=== PATIENT | female | born 1955 | race Caucasian/White ===

== ENCOUNTER 2017-11-27 09:10 | Emergency (ER) | payer MEDICARE ==
[2017-11-27] MEDS ORDERED: methylPREDNISolone Sod Succ/PF 125 MG/2 ML VIAL ONE (11:53)
[2017-11-27] MEDS ORDERED: Water For Inject, Bacteriostat 30 ML ONE (12:12)
== END 2017-11-27 12:11 | disposition home or self-care (01) ==
LOC: ERS 09:10
DX: T78.3XXA Angioneurotic edema, initial encounter (principal); D86.9 Sarcoidosis, unspecified; I10 Essential (primary) hypertension; E11.9 Type 2 diabetes mellitus without complications
CPT/HCPCS: 96374; J2930

== ENCOUNTER 2018-04-27 01:49 | Inpatient (IN) | payer MEDICARE ==
[2018-04-27] MEDS ORDERED: Acetaminophen 500 MG TAB ONE (03:51)
[2018-04-27] MEDS ORDERED: cefTRIAXone\\ROCEPHIN 1 GM in Sodium Chloride 0.9% 100 ML IVPB SCH (04:34)
[2018-04-27] MEDS ORDERED: HumaLOG 300 UNITS/3 ML VIAL SC PRN (04:34)
[2018-04-27] MEDS ORDERED: Senokot 8.6 MG TAB PO PRN (04:34)
[2018-04-27] MEDS ORDERED: Melatonin 3 MG TAB PO PRN ×2 (04:34→14:50)
[2018-04-27] MEDS ORDERED: Dextrose 50% Abboject 50 ML SYRINGE SLOW IVP PRN (04:34)
[2018-04-27] MEDS ORDERED: Guaifenesin DM 100-10/5 ML UDCUP PO PRN (04:34)
[2018-04-27] MEDS ORDERED: Acetaminophen 325 MG TAB PO PRN (04:34)
[2018-04-27] MEDS ORDERED: Dextrose 5% in Water 1,000 ML IV PRN (04:34)
[2018-04-27] MEDS: Azithromycin 500 MG in Sodium Chloride 0.9% 250 ML 250 ML IVPB SCH (06:37)
[2018-04-27 07:24] VITALS: BMI 34.9
[2018-04-27] MEDS ORDERED: Oxybutynin 5 MG TAB PO SCH (09:00)
[2018-04-27] MEDS ORDERED: Lidocaine 4% PF 5 ML AMP NEB SCH (09:15)
[2018-04-27] MEDS: Sodium Chloride 0.9% 1,000 ML IV SCH (09:44)
[2018-04-27] MEDS: Cefepime 2 GM in Sodium Chloride 0.9% 100 ML IVPB SCH ×2 (09:46→21:59)
[2018-04-27] MEDS: metFORMIN 500 MG TAB PO SCH ×2 (09:48→17:16)
[2018-04-27] MEDS: Gabapentin 300 MG CAP PO SCH ×2 (09:49→21:58)
[2018-04-27] MEDS: Benzonatate 100 MG CAP PO SCH ×3 (09:49→21:59)
[2018-04-27] MEDS: guaiFENesin ER 600 MG TAB PO SCH ×2 (09:49→21:58)
[2018-04-27] MEDS: Famotidine 20 MG TAB PO SCH ×2 (09:49→21:59)
--- NOTE | 2018-04-27 10:20 | CON ---
DATE OF CONSULTATION: 04/27/2018 This is a 62-year-old female who was seen in the office for the first time on 04/19/2018. She presented with hemoptysis and abnormal chest x-ray. She was to be followed up in the office with a repeat chest x-ray and subsequent CAT scan, but presented with recurrent hemoptysis. She is a [facility] smoker, though she quit smoking many years ago, 18 years ago. She had a pack a day smoking for 1 5 years at least. She has been sick since 04/07/2018. PAST MEDICAL HISTORY: Pertinent for previous history of TB diagnosed in 2005. She took several diff erent medications. History of sarcoidosis diagnosis made following some kind of a lung biopsy in [place], [place]. We are still awaiting information from [place]. History of neuropathy, history o f TIA, history of gastritis, history of diabetes, chronic pain. PAST SURGICAL HISTORY: Lung biopsy in 2005, right eye surgery, breast tumor benign, back surgery, to nsils, lap band in 2002, hysterectomy 1990. MEDICATIONS FROM HOME: Metformin 1000 twice a day, atorvastatin 20, gabapentin 300 twice a day, Core g 6.2 twice a day, oxybutynin 5 twice a day, Zoloft 50, trazodone 50. ALLERGIES: LISINOPRIL and MORPHINE. SOCIAL/FAMILY HISTORY: As noted a former smoker. No alcohol abuse. REVIEW OF SYSTEMS: Otherwise 10 point negative. PHYSICAL EXAMINATION: VITAL SIGNS: Blood pressure 126/64, sats 90% on room air, pulse 95, temperature 98. GENERAL: She is awake, alert, responsive, in no distress. CHEST: Chest revealed decreased breath sounds, rhonchi and crackles, left greater than right. CARDIAC: Normal S1, S2, no gallops. ABDOMEN: Soft. No masses. LABORATORY: White count 10,000, H&H 10 and 31, platelet count is normal. INR is normal. Electrolyt es are normal. IMPRESSION: 1. X-ray shows the previously described left lower lung mass and infiltrate. CAT scan shows 5.5 cm mass in the superior segment of the left lower lobe. 2. Hemoptysis. PLAN: Diagnostic bronchoscopy will be performed because regarding hemoptysis, former smoker. In the meantime, I agree with neb treatments, empiric antibiotics, supportive care. I will follow. This is a consultation note, 70 minutes, 50% spent in direct patient care.
[2018-04-27] MEDS ORDERED: methylPREDNISolone Sod Succ/PF 125 MG/2 ML VIAL IVP SCH (12:00)
--- NOTE | 2018-04-27 13:06 | HP ---
REASON FOR ADMISSION: Left lung pneumonia, failed outpatient antibiotic treatment, hemoptysis. HISTORY OF PRESENT ILLNESS: The patient gives history of being diagnosed with pneumonia last Thursday. She was placed on Levaquin. She took it for 3 days and was not feeling good. She went back to see her primary care physician in [place], Dr. Summer Groves. Medrol Dosepak was added and she completed the full course and felt better. Yesterday evening, the patient started to have coughing spells and had hemoptysis multiple times. She had a followup appointment with Dr. Tompkins on the , which the primary care physician has set out for her. She has known history of sarcoidosis diagnosed more than 10 years ago. No complaints of fever at present. She has no complaints of chest pain, palpitation, PND, or orthopnea. She takes aspirin and no other blood thinners. The patient does not use oxygen. From last week or so, she has been using 3- 4 times her albuterol nebulizer, but otherwise does not use it on a regular basis. PAST MEDICAL AND SURGICAL HISTORY: Diabetes mellitus type 2, peripheral neuropathy, dyslipidemia, hypertension, insomnia, has had a lung biopsy done in [place], [place], which was apparently negative for sarcoid and she was clinically diagnosed with sarcoidosis per patient. Lap band, lumbar fusion, tonsillectomy, hysterectomy, hernia repair. CURRENT MEDICATIONS: Metformin 1000 mg twice daily, gabapentin 300 mg twice daily, oxybutynin 5 mg daily, atorvastatin 20 mg daily, aspirin 81 mg daily, sertraline 50 mg daily, trazodone 50 mg p.o. at bedtime p.r.n., melatonin 10 mg p.o. at bedtime, Biotin 1 tab daily, albuterol rescue inhaler p.r.n., albuterol nebulizer q.6 hourly p.r.n. ALLERGIES: Allergic to LISINOPRIL and MORPHINE. PERSONAL HISTORY: Quit smoking 18 years ago, prior to which smoked one pack a day for nearly 15 years. Does not abuse alcohol or drugs. She lives alone. FAMILY HISTORY: Mother of [place] at the age of 67 years. She was also alcoholic. She does not know much about her father. The patient has 3 children. CODE STATUS: FULL. Power of senior attorney is her daughter, Ms. Anahi Antonio. REVIEW OF SYSTEMS: The following complete review of systems was negative, unless otherwise mentioned in the HPI or below: Constitutional: Weight loss or gain, ability to conduct usual activities. Skin: Rash, itching. Eyes: Double vision, pain. ENT/Mouth: Nose bleeding, neck stiffness, pain, tenderness. Cardiovascular: Palpitations, dyspnea on exertion, orthopnea. Respiratory: Shortness of breath, wheezing, cough, hemoptysis, fever or night sweats. Gastrointestinal: Poor appetite, abdominal pain, heartburn, nausea, vomiting, constipation, or diarrhea. Genitourinary: Urgency, frequency, dysuria, nocturia. Musculoskeletal: Pain, swelling. Neurologic/Psychiatric: Anxiety, depression. Allergy/Immunologic: Skin rash, bleeding tendency. PHYSICAL EXAMINATION: GENERAL: The patient is a 62-year-old female who is currently not in any acute distress. VITAL SIGNS: Blood pressure 160/84, pulse 70 per minute, respiratory rate 18 per minute, temperature 98 degrees Fahrenheit, saturating 96% on room air. NECK: Supple, no elevated JVD. HEENT: Eyes: Extraocular muscles intact. Pupils reacting to light. Oral cavity: Mucous membranes are moist. No exudates or congestion. CARDIOVASCULAR SYSTEM: S1, S2 heard. Regular rhythm. RESPIRATORY SYSTEM: Air entry 1+ bilateral. Scattered rhonchi plus no rales or wheezes. ABDOMEN: Soft, bowel sounds heard. No tenderness, rigidity or guarding. EXTREMITIES: No peripheral edema or calf tenderness. VASCULAR SYSTEM: Peripheral pulses 1+ bilateral, no ischemic ulcerations or gangrene. CENTRAL NERVOUS SYSTEM: No gross focal deficits seen. The patient is alert, awake, and oriented well. PSYCHIATRIC SYSTEM: The patient's mood is euthymic. No hallucinations or delusions. LABORATORY AND X-RAY FINDINGS: White count of 10, H&H 10 and 31, platelet count is 265, MCV is 73 with 66% neutrophils. PT, INR, PTT within normal limits. D-dimer was 0.57. Electrolytes are stable. BUN 12, creatinine 0.9. Serum glucose 222. Hemoglobin A1c 6.7. Liver enzymes are within normal limits. Albumin is 3.8, LDL 79, total cholesterol 151, triglycerides 95, HDL 53. CT angio chest per my review shows left lung pneumonia. CLINICAL IMPRESSION AND PLAN: The patient will be admitted to medical floor for left lung pneumonia with hemoptysis. Official CT angio chest results are pending at present. The patient will be placed on ceftriaxone, azithromycin and cefepime for now. She will also be on DuoNebs q.6 hourly, Mucinex and Tessalon Perles. We will continue all her home medications including gabapentin , metformin, Lipitor, oxybutynin and sertraline. Pulmonary consultation with Dr. Tompkins will be requested. The patient was scheduled to see him on the . We will continue to closely monitor her on medical floor. ROYER
[2018-04-27 13:33] LABS: Legionella Urinary Ag Negative (Negative); Strep pneumo Urine Ag NEGATIVE (NEGATIVE)
[2018-04-27] MEDS: HumaLOG 300 UNITS/3 ML VIAL SC PRN (17:41)
--- NOTE | 2018-04-27 19:59 | HP ---
DATE OF CONSULTATION: 04/27/2018 CHIEF COMPLAINT: Hemoptysis. HISTORY OF PRESENT ILLNESS: Patient is a very pleasant 62-year-old female with a past medical histor y of sarcoidosis, irregular heart rate, diabetes, who presented to the hospital with hemoptysis. Sheila herrera states that about a couple weeks ago she was feeling unwell and was started on Levaquin and a Me drol Dosepak and after taking that she felt a little bit better; however, for the past few days, she has not been feeling really well. The patient states that she has been having some shortness of sarthak th and yesterday she started coughing up some blood x2 which concerned her and she called her primary care doctor who advised her to come into the ER for further evaluation. Patient initially went to a [facility] to get her x-ray done and at that time she had 3 or 4 bouts of hemoptysis and then wa s transferred to [facility] for further evaluation. Patient states that she had this episode simil ar to this about 12 years ago when she was in [facility] when she had coughed up blood. She u nderwent a testing and was told that she has sarcoidosis which was biopsy proven. Patient states her primary care doctor, Dr. Sarath Gregorio has all the records. The patient also states that she at [facility] time initially had undergone testing for TB which was negative; however, [facility] her three days later, her test came back positive and was treated for it. Patient state s that then the [facility] called her back stating that she actually never really had tubercul osis. This patient denies any fevers or chills. She denies any weight loss which is unintentional. She is trying to actually lose weight; however, just complains of some shortness of breath. PAST MEDICAL HISTORY: She has history of diabetes, irregular heart rate and sarcoidosis. PAST SURGICAL HISTORY: She has had a lap band, had back surgery, hysterectomy. She has had a catara ct surgery, also had right breast lumpectomy. FAMILY HISTORY: She is adopted; however, she is adopted. MEDICATIONS: As the following: She is on, 1. Aspirin 81 mg daily. 2. Atorvastatin 20 mg daily. 3. Gabapentin 300 mg p.o. b.i.d. 4. Melatonin 10 mg at bedtime. 5. Metformin 1000 mg daily. 6. Ditropan 5 mg b.i.d. 7. Sertraline 50 mg daily. 8. Trazodone 50 at bedtime. SOCIAL HISTORY: The patient has a history of smoking a pack a day for 15 years; however, she quit 18 years ago. Denies any alcohol or drug use. REVIEW OF SYSTEMS: All negative except for the ones mentioned above in the HPI. PHYSICAL EXAMINATION: VITAL SIGNS: Temperature of 98.1, 71, 95% on room air, 126/64. GENERAL: She is awake, alert, oriented x3, does not appear in any distress. CARDIOVASCULAR SYSTEM: S1, S2 present. No murmurs, rubs or gallops. LUNGS: She does have some fine crackles to bases, otherwise normal. ABDOMEN: Soft, nontender. Bowel sounds are present x2. EXTREMITIES: No edema. Pedal pulses present x2. LABORATORY DATA: WBCs of 10.0, hemoglobin of 10.3, hematocrit of 31.7. Her MCV is actually 73.7. S he has got no bandemia. Chemistry jean, sodium 143, potassium 3.7, BUN of 12, creatinine of 0.93, gl ucose of 222, lactic acid of 1.6. Her LFTs are normal. Her total bilirubin is less than 0.2. She h ad a CTA, which indicated a consolidation in the superior left lower lobe and patient also has a tiny subcentimeter spiculated area in the right upper lobe. No evidence of pulmonary embolism. ASSESSMENT AND PLAN: The patient is a very pleasant 52-year-old female who presents to the hospital for hemoptysis. 1. Hemoptysis secondary to possible infectious, which could be TB versus pneumonia versus lung absce ss that is infectious versus autoimmune however rheumatological versus Goodpasture's or Grace's dayana divya a bronchitis or bronchiectasis. In terms of bronchiectasis, there are multiple reasons could be possibly secondary to TB versus sarcoid versus prior pneumonia and also a neoplasm cannot be excluded given her history of smoking, we will continue DuoNebs, broad spectrum antibiotics. Pulmonology has been consulted. The patient will undergo bronchoscopy in a.m. We will try and get records from Dr. Gregorio. I have a phone number at [phone] and will also check an interferon gold and continue to monitor. 2. Microcytic anemia. Patient's iron levels were low. We will do iron replacement. We will start either IV versus p.o. 3. History of diabetes. We will continue her home medications. 4. Deep venous thrombosis prophylaxis. We will put patient on subcu heparin.
[2018-04-27] MEDS ORDERED: Atorvastatin Calcium 20 MG TAB PO SCH (21:00)
[2018-04-27] MEDS ORDERED: Gabapentin 300 MG CAP PO SCH (21:00)
[2018-04-27] MEDS: Oxybutynin 5 MG TAB PO SCH (21:58)
[2018-04-27] MEDS: Atorvastatin Calcium 20 MG TAB PO SCH (21:59)
[2018-04-27] MEDS: traZODone HCl 50 MG TAB PO PRN (22:23)
[2018-04-28 05:38] LABS: #Lymphocytes 0.8 thou/uL (1.20-3.40); #Monocytes 0.1 thou/uL (0.11-0.59); #Neutrophils 7.6 thou/uL (1.40-6.50); %Basophils 0.1 % (0.0-1.0); %Eosinophils 0.1 % (0.0-10.0); %Lymphocytes 8.9 % (21.0-51.0); %Monocytes 0.9 % (0.0-10.0); Hemoglobin 9.7 g/dL (12.0-16.0); Mean Corpuscular Hemoglobin 25.4 pg (27.0-31.0); Mean Corpuscular Volume 79.2 fl (81.0-99.0); Mean Platelet Volume 7.6 fL (7.4-10.4); Platelet Count 228 thou/uL (130-400); Red Blood Cell (RBC) Count 3.82 mill/uL (4.20-5.40); White Blood Cell (WBC) Count 8.4 thou/uL (4.8-10.8)
[2018-04-28 05:41] LABS: Anion Gap 14 mmol/L (10-20); BUN (Urea Nitrogen) 10 mg/dL (9.8-20.1); Calc. Creatinine Clearance 97 mL/min (70-130); Calcium 8.8 mg/dL (7.8-10.44); Carbon Dioxide 23 mmol/L (23-31); Chloride 105 mmol/L (98-107); Estimated GFR-MDRD 69; Glucose 189 mg/dL (80-115); Potassium 4.2 mmol/L (3.5-5.1); Sodium 138 mmol/L (136-145)
[2018-04-28] MEDS: Azithromycin 500 MG in Sodium Chloride 0.9% 250 ML 250 ML IVPB SCH (06:04)
[2018-04-28] MEDS: Sodium Chloride 0.9% 1,000 ML IV SCH (06:26)
[2018-04-28] MEDS ORDERED: Benzocaine 20% Spray 60 ML CAN ONE (06:57)
[2018-04-28] MEDS ORDERED: Lidocaine 2% Jelly 5 ML TUBE ONE (06:58)
[2018-04-28] MEDS ORDERED: Fentanyl 100 MCG/2 ML VIAL ONE (08:25)
[2018-04-28] MEDS ORDERED: Midazolam HCl 2 mg/2 ml Vial ONE (08:25)
[2018-04-28] MEDS ORDERED: Lidocaine 1% (PF) 30 ML VIAL ONE (08:25)
[2018-04-28] MEDS ORDERED: Non-Formulary Item 1 EACH (Sertraline Hcl [Sertraline Hcl] 50 MG) PO SCH (09:00)
[2018-04-28] MEDS: Gabapentin 300 MG CAP PO SCH ×2 (10:58→22:27)
[2018-04-28] MEDS: Famotidine 20 MG TAB PO SCH ×2 (10:58→22:27)
[2018-04-28] MEDS: Benzonatate 100 MG CAP PO SCH ×3 (10:58→22:27)
[2018-04-28] MEDS: metFORMIN 500 MG TAB PO SCH ×2 (10:58→18:09)
[2018-04-28] MEDS: Oxybutynin 5 MG TAB PO SCH ×2 (10:59→22:27)
[2018-04-28] MEDS: guaiFENesin ER 600 MG TAB PO SCH ×2 (10:59→22:27)
[2018-04-28] MEDS: Cefepime 2 GM in Sodium Chloride 0.9% 100 ML IVPB SCH ×2 (11:00→22:28)
[2018-04-28] MEDS ORDERED: Lidocaine 2% MPF 10 ML AMP (For Epidural Use) ONE (11:14)
--- NOTE | 2018-04-28 11:16 | OP ---
DATE OF PROCEDURE: 04/28/2018 SURGEON: Dr. Kane Tompkins PROCEDURE: Bronchoscopy, diagnostic with a transbronchial brushings under fluoroscopy. INDICATIONS: Left lower lung mass, rule out tuberculosis, fungus and malignancy. POST-BRONCHOSCOPY DIAGNOSES: Left lower lung mass, rule out tuberculosis, fungus and malignancy. PROCEDURE IN DETAIL: After informed consent, the patient received nebulized 4 mL of 4% lidocaine and DuoNeb. Her left nostril was prepped with lidocaine jelly. During the procedure she received a tot al of 2 mg Versed and 75 fentanyl. The flexible video bronchoscope was then passed via the left nost ril. Pharynx, upper pharynx, and vocal cords were visualized and were unremarkable. On entering the trachea, this was normal. Betty was sharp. Right lung inspected initially. The right upper and r ight lobe visualized without any obvious endobronchial obstruction or blood. The left lung was inspe cted thereafter. There is some old blood, which was lavaged with normal saline until clear. The lef t upper and left lower lobe of the lingular segment was visualized. Surprisingly, there was no endob ronchial disease. The mass-like lesion, corresponding to the superior segment left lower lobe was vi sualized. The superior segment had 3 subsegments, but no endobronchial disease was seen. Brushings were passed in all the 3 subsegments corresponding to the mass-like infiltrate on the fluoroscopy, on ly brushings were obtained. There was some bleeding, which was controlled with instillation of epinephrine, a total of 4 mL of 1: 10,000. Once again, no endobronchial disease seen. The washings will be sent for AFB smear culture, fungal smear and culture, routine Gram stain and C&S . The patient tolerated the procedure well. BRIEF DISCHARGE NOTE: The patient tolerated the procedure well. The results will be available to e patient and family. Further recommendation after above.
--- NOTE | 2018-04-28 11:23 | PRG ---
DATE OF SERVICE: 04/28/2018 SUBJECTIVE: Post-bronchoscopy, she is awake, alert, responsive. Denies any pain or discomfort. PHYSICAL EXAMINATION: VITAL SIGNS: Stable, sats are 90% on room air, blood pressure 147/71, respirations 20, temperature 9 8. CHEST: No wheezing or crackles. CARDIAC: Normal S1 and S2. No gallops. ABDOMEN: Soft, no masses. LABORATORY DATA: White count is 8.4, hemoglobin and hematocrit is 9 and 30, platelet count is normal . Electrolytes are normal. IMPRESSION: Left chest pneumonia or hemoptysis, status post bronchoscopy. No endobronchial disease. PLAN: We will probably discontinue all antibiotics tomorrow. Await results of the bronchoscopy. She can probably discharge home in the next 24-48 hours.
[2018-04-28] MEDS: HumaLOG 300 UNITS/3 ML VIAL SC PRN (12:59)
--- NOTE | 2018-04-28 14:55 | PDOC.PN ---
- Subjective Encounter Start Date: 04/28/18 Encounter Start Time: 12:30 Subjective: pt up walking states she did have small amount of hemoptysis yest - Objective Resuscitation Status: Resuscitation Status FULL:Full Resuscitation Vital Signs & Weight: Vital Signs (12 hours) Temp Pulse Resp BP BP Pulse Ox 04/28/18 11:38 97.9 F 78 18 120/66 92 L 04/28/18 11:37 78 14 96 04/28/18 10:05 98 F 79 20 157/71 H 94 L 04/28/18 07:21 97.3 F L 78 20 150/73 H 95 04/28/18 07:20 97.3 F L 78 20 95 04/28/18 06:32 79 12 98 Weight Weight 197 lb 4 oz I&O: 04/27/18 04/28/18 04/29/18 06:59 06:59 06:59 Intake Total 2124 Output Total 250 Balance 1874 Result Diagrams: 04/28/18 04:47 04/28/18 04:47 Additional Labs: Accuchecks 04/28/18 04/28/18 04/27/18 11:34 06:13 16:35 POC Glucose 217 H 174 H 159 H Phys Exam - Physical Examination HEENT: PERRLA, moist MMs, sclera anicteric, TM's clear, oral pharynx no lesions , 2+ tonsils Neck: no nodes, no JVD, supple, full ROM mild crackles to bases Cardiovascular: RRR, no significant murmur, no rub, gallop, irregular Gastrointestinal: soft, non-tender, no distention, positive bowel sounds Musculoskeletal: no edema, pulses present, edema present Dx/Plan (1) Hemoptysis Code(s): R04.2 - HEMOPTYSIS Status: Acute (2) Pneumonia involving left lung Code(s): J18.9 - PNEUMONIA, UNSPECIFIED ORGANISM Status: Acute (3) Sarcoidosis Code(s): D86.9 - SARCOIDOSIS, UNSPECIFIED Status: Acute - Plan * . interferon gold pending. I do not think she has TB. Pt under went bronchoscope on 04/28 no biopsy but washing was sent for cx. Called her pulmonary doc about sending pt's medical records over. will continue abx for now. pt put on steroids per pulmonary. May consider ID? Review of Systems - Review of Systems ENT: negative: Ear Pain, Ear Discharge, Nose Pain, Nose Discharge, Nose Congestion, Mouth Pain, Mouth Swelling, Throat Pain, Throat Swelling, Other Respiratory: Hemoptysis Cardiovascular: negative: chest pain, palpitations, orthopnea, paroxysmal nocturnal dyspnea, edema, light headedness, other Gastrointestinal: negative: Nausea, Vomiting, Abdominal Pain, Diarrhea, Constipation, Melena, Hematochezia, Other - Medications/Allergies Allergies/Adverse Reactions: Allergies Allergy/AdvReac Type Severity Reaction Status Date / Time lisinopril Allergy Intermediate Swollen Verified 04/27/18 07:29 Lips morphine Allergy Mild Rash Verified 04/27/18 07:29 Medications: Current Medications Acetaminophen (Tylenol) 650 mg PO Q4H PRN PRN Reason: Headache/Fever or Pain Last Admin: 04/27/18 09:57 Dose: 650 mg Albuterol/Ipratropium (Duoneb) 3 ml NEB [id number] [facility] Last Admin: 04/28/18 11:37 Dose: 3 ml Albuterol/Ipratropium (Duoneb) 3 ml NEB WILLCALL [facility] Atorvastatin Calcium (Lipitor) 20 mg PO HS [facility] Last Admin: 04/27/18 21:59 Dose: 20 mg Benzonatate (Tessalon) 100 mg PO TID [facility] Last Admin: 04/28/18 14:50 Dose: 100 mg Dextrose/Water (Dextrose 50%) 25 gm SLOW IVP PRN PRN PRN Reason: Hypoglycemia Famotidine (Pepcid) 20 mg PO BID [facility] Last Admin: 04/28/18 10:58 Dose: 20 mg Gabapentin (Neurontin) 300 mg PO BID [facility] Last Admin: 04/28/18 10:58 Dose: 300 mg Glucagon (Glucagon) 1 mg IM PRN PRN PRN Reason: Hypoglycemia Guaifenesin (Mucinex) 600 mg PO Q12HR [facility] Last Admin: 04/28/18 10:59 Dose: 600 mg Guaifenesin/Dextromethorphan (Robitussin Dm) 15 ml PO Q4H PRN PRN Reason: Cough Azithromycin 500 mg/ Sodium (Chloride) 250 mls @ 250 mls/hr IVPB Q24HR [facility] Last Admin: 04/28/18 06:04 Dose: 250 mls Cefepime HCl 2 gm/ Sodium (Chloride) 100 mls @ 200 mls/hr IVPB Q12HR [facility] Last Admin: 04/28/18 11:00 Dose: 100 mls Dextrose/Water (D5w) 1,000 mls @ 0 mls/hr IV .Q0M PRN; As Directed PRN Reason: Hypoglycemia Insulin Human Lispro (Humalog) 0 units SC .MODERATE SLIDING SC PRN PRN Reason: Moderate Correctional Scale Last Admin: 04/28/18 12:59 Dose: 4 unit Insulin Human Lispro (Humalog) 0 units SC .BEDTIME SLIDING SC PRN PRN Reason: Bedtime Correctional Scale Lidocaine HCl (Xylocaine 4% Pf) 5 ml [facility] WILLCALL [facility] Melatonin (Melatonin) 9 mg PO HS PRN PRN Reason: Insomnia Metformin HCl (Glucophage) 1,000 mg PO BID-[facility] Last Admin: 04/28/18 10:58 Dose: 1,000 mg Oxybutynin Chloride (Ditropan) 5 mg PO BID [facility] Last Admin: 04/28/18 10:59 Dose: 5 mg Prednisone (Prednisone) 20 mg PO QA-[facility] Senna (Senokot) 2 tab PO HSPRN PRN PRN Reason: Constipation Sertraline HCl (Zoloft) 50 mg PO DAILY [facility] Last Admin: 04/28/18 10:58 Dose: 50 mg Sodium Chloride (Flush - Normal Saline) 10 ml IVF Q12HR [facility] Last Admin: 04/28/18 11:02 Dose: Not Given Sodium Chloride (Flush - Normal Saline) 10 ml IVF PRN PRN PRN Reason: Saline Flush Trazodone HCl (Desyrel) 50 mg PO HS PRN PRN Reason: Insomnia Last Admin: 04/27/18 22:23 Dose: 50 mg
[2018-04-28 16:06] LABS: PTT 23.4 SEC (22.9-36.1); Prothrombin Time 13.6 SEC (12.0-14.7)
[2018-04-28] MEDS: traZODone HCl 50 MG TAB PO PRN (22:27)
[2018-04-28] MEDS: Atorvastatin Calcium 20 MG TAB PO SCH (22:27)
[2018-04-29] MEDS: Azithromycin 500 MG in Sodium Chloride 0.9% 250 ML 250 ML IVPB SCH (06:08)
[2018-04-29] MEDS: Gabapentin 300 MG CAP PO SCH ×2 (09:50→21:03)
[2018-04-29] MEDS: Oxybutynin 5 MG TAB PO SCH ×2 (09:50→21:03)
[2018-04-29] MEDS: metFORMIN 500 MG TAB PO SCH ×2 (09:50→16:08)
[2018-04-29] MEDS: guaiFENesin ER 600 MG TAB PO SCH ×2 (09:51→21:02)
[2018-04-29] MEDS: predniSONE 20 MG TAB PO SCH (09:51)
[2018-04-29] MEDS: Famotidine 20 MG TAB PO SCH ×2 (09:51→21:03)
[2018-04-29] MEDS: Benzonatate 100 MG CAP PO SCH ×3 (09:51→21:03)
--- NOTE | 2018-04-29 09:52 | RAD ---
PA AND LATERAL VIEWS CHEST: HISTORY: Pneumonia. FINDINGS: Comparison is made with the exam of 04/07/18. There is decrease in the density of the left basilar consolidation noted on the previous scan without complete resolution. No areas of consolidation are seen. No pneumothoraces or pleural effusions ar e identified. IMPRESSION: Incomplete resolution of left-sided pneumonia. Continued followup is recommended. POS: [facility]
[2018-04-29] MEDS: Doxycycline 100 MG CAP PO SCH ×2 (09:53→21:03)
--- NOTE | 2018-04-29 11:57 | PRG ---
DATE OF SERVICE: 04/29/2018 SUBJECTIVE: This morning, she is awake, alert and responsive, still coughing a little bit of blood. OBJECTIVE: VITAL SIGNS: Sats 95% on room air, temperature is 98, pulse 84, blood pressure 157/78. CHEST: With minimal wheezing and rhonchi. CARDIAC: Normal S1, S2, no gallops. ABDOMEN: Soft, no masses. IMPRESSION: 1. Left-sided pneumonia. All cultures negative. 2. Hemoptysis secondary to #1. 3. Depression. 4. Former smoker. PLAN: Switch her over to oral antibiotics based on the results of the path. Clearly this is not MTB dc isolatation_. MTDD
[2018-04-29 12:26] LABS: Hemoglobin 9.4 g/dL (12.0-16.0)
[2018-04-29] MEDS: Mometasone/Formoterol 120 PUFF INHALER INH SCH (19:35)
[2018-04-29] MEDS: Atorvastatin Calcium 20 MG TAB PO SCH (21:03)
[2018-04-29] MEDS: traZODone HCl 50 MG TAB PO PRN (21:30)
[2018-04-30] MEDS: Mometasone/Formoterol 120 PUFF INHALER INH SCH (06:55)
--- NOTE | 2018-04-30 07:37 | PDOC.PN ---
- Subjective Encounter Start Date: 04/29/18 Encounter Start Time: 11:00 Subjective: pt up in bed had some hemoptysis last night - Objective Resuscitation Status: Resuscitation Status FULL:Full Resuscitation Vital Signs & Weight: Vital Signs (12 hours) Temp Pulse Resp Pulse Ox 04/30/18 06:55 75 24 H 98 04/30/18 06:39 98 04/30/18 06:35 75 24 H 98 04/29/18 23:27 82 16 97 04/29/18 20:00 98.1 F 82 18 95 Weight Weight 197 lb 4 oz I&O: 04/29/18 04/30/18 05/01/18 06:59 06:59 06:59 Intake Total 2500 1500 Output Total 1000 10 Balance 1500 1490 Result Diagrams: 04/29/18 12:13 04/28/18 04:47 Additional Labs: Accuchecks 04/30/18 04/29/18 04/29/18 06:15 19:32 16:28 POC Glucose 99 170 H 156 H 04/29/18 11:15 POC Glucose 108 Phys Exam - Physical Examination HEENT: PERRLA, moist MMs, sclera anicteric, TM's clear, oral pharynx no lesions , 2+ tonsils Neck: no nodes, no JVD, supple, full ROM mild wheezing and rhonchi all over lungs Cardiovascular: RRR, no significant murmur, no rub, gallop, irregular Gastrointestinal: soft, non-tender, no distention, positive bowel sounds Dx/Plan (1) Hemoptysis Code(s): R04.2 - HEMOPTYSIS Status: Acute (2) Pneumonia involving left lung Code(s): J18.9 - PNEUMONIA, UNSPECIFIED ORGANISM Status: Acute (3) Sarcoidosis Code(s): D86.9 - SARCOIDOSIS, UNSPECIFIED Status: Acute - Plan * will continue to monitor hh * vitals stable. awaiting cx results * autoimmune workup sent * pt's abx changed to doxy Review of Systems - Review of Systems ENT: negative: Ear Pain, Ear Discharge, Nose Pain, Nose Discharge, Nose Congestion, Mouth Pain, Mouth Swelling, Throat Pain, Throat Swelling, Other Respiratory: Hemoptysis Cardiovascular: negative: chest pain, palpitations, orthopnea, paroxysmal nocturnal dyspnea, edema, light headedness, other Gastrointestinal: negative: Nausea, Vomiting, Abdominal Pain, Diarrhea, Constipation, Melena, Hematochezia, Other - Medications/Allergies Allergies/Adverse Reactions: Allergies Allergy/AdvReac Type Severity Reaction Status Date / Time lisinopril Allergy Intermediate Swollen Verified 04/27/18 07:29 Lips morphine Allergy Mild Rash Verified 04/27/18 07:29 Medications: Current Medications Acetaminophen (Tylenol) 650 mg PO Q4H PRN PRN Reason: Headache/Fever or Pain Last Admin: 04/27/18 09:57 Dose: 650 mg Albuterol/Ipratropium (Duoneb) 3 ml NEB [id number] [facility] Last Admin: 04/30/18 06:35 Dose: 3 ml Atorvastatin Calcium (Lipitor) 20 mg PO HS [facility] Last Admin: 04/29/18 21:03 Dose: 20 mg Benzonatate (Tessalon) 100 mg PO TID [facility] Last Admin: 04/29/18 21:03 Dose: 100 mg Dextrose/Water (Dextrose 50%) 25 gm SLOW IVP PRN PRN PRN Reason: Hypoglycemia Doxycycline Hyclate (Vibramycin) 100 mg PO BID [facility] Stop: 05/06/18 09:01 Last Admin: 04/29/18 21:03 Dose: 100 mg Famotidine (Pepcid) 20 mg PO BID [facility] Last Admin: 04/29/18 21:03 Dose: 20 mg Gabapentin (Neurontin) 300 mg PO BID [facility] Last Admin: 04/29/18 21:03 Dose: 300 mg Glucagon (Glucagon) 1 mg IM PRN PRN PRN Reason: Hypoglycemia Guaifenesin (Mucinex) 600 mg PO Q12HR [facility] Last Admin: 04/29/18 21:02 Dose: 600 mg Guaifenesin/Dextromethorphan (Robitussin Dm) 15 ml PO Q4H PRN PRN Reason: Cough Dextrose/Water (D5w) 1,000 mls @ 0 mls/hr IV .Q0M PRN; As Directed PRN Reason: Hypoglycemia Insulin Human Lispro (Humalog) 0 units SC .MODERATE SLIDING SC PRN PRN Reason: Moderate Correctional Scale Last Admin: 04/28/18 12:59 Dose: 4 unit Insulin Human Lispro (Humalog) 0 units SC .BEDTIME SLIDING SC PRN PRN Reason: Bedtime Correctional Scale Lidocaine HCl (Xylocaine 4% Pf) 5 ml NEB WILLCALL [facility] Melatonin (Melatonin) 9 mg PO HS PRN PRN Reason: Insomnia Metformin HCl (Glucophage) 1,000 mg PO BID[facility] Last Admin: 04/29/18 16:08 Dose: 1,000 mg Mometasone Furoate/Formoterol Fumar (Dulera 200 Mcg/5 Mcg Inhaler) 2 puff INH BID-RT [facility] Last Admin: 04/30/18 06:55 Dose: 2 puff Oxybutynin Chloride (Ditropan) 5 mg PO BID [facility] Last Admin: 04/29/18 21:03 Dose: 5 mg Prednisone (Prednisone) 20 mg PO QAM-[facility] Last Admin: 04/29/18 09:51 Dose: 20 mg Senna (Senokot) 2 tab PO HSPRN PRN PRN Reason: Constipation Sertraline HCl (Zoloft) 50 mg PO DAILY [facility] Last Admin: 04/29/18 09:51 Dose: 50 mg Sodium Chloride (Flush - Normal Saline) 10 ml IVF Q12HR [facility] Last Admin: 04/29/18 21:32 Dose: 10 ml Sodium Chloride (Flush - Normal Saline) 10 ml IVF PRN PRN PRN Reason: Saline Flush Trazodone HCl (Desyrel) 50 mg PO HS PRN PRN Reason: Insomnia Last Admin: 04/29/18 21:30 Dose: 50 mg
[2018-04-30] MEDS: metFORMIN 500 MG TAB PO SCH ×2 (07:54→16:14)
[2018-04-30] MEDS: Benzonatate 100 MG CAP PO SCH ×2 (07:54→16:15)
[2018-04-30] MEDS: Doxycycline 100 MG CAP PO SCH (07:54)
[2018-04-30] MEDS: Oxybutynin 5 MG TAB PO SCH (07:54)
[2018-04-30] MEDS: Famotidine 20 MG TAB PO SCH (07:54)
[2018-04-30] MEDS: guaiFENesin ER 600 MG TAB PO SCH (07:55)
[2018-04-30] MEDS: predniSONE 20 MG TAB PO SCH (07:55)
[2018-04-30] MEDS: Gabapentin 300 MG CAP PO SCH (07:55)
--- NOTE | 2018-04-30 09:06 | PRG ---
DATE OF SERVICE: 04/30/2018 This morning she is awake, alert, responsive. PHYSICAL EXAMINATION: VITAL SIGNS: Sats are 90% on room air, respiration 24, pulse 80, blood pressure 120/80. CHEST: Chest revealed decreased breath sounds, no wheezing. CARDIAC: Normal S1-S2. No gallops. ABDOMEN: No masses. Her bronch washings are growing MRSA which I am surprised. H&H is stable. IMPRESSION: 1. Left-sided pneumonia. 2. Hemoptysis. 3. Probably methicillin-resistant Staphylococcus aureus pneumonia. PLAN: She will be discharged home on antibiotics. She will be seen in the office in 2 weeks with a chest x-ray. Taper her prednisone. Continue home medication including metformin, gabapentin, sertraline. Antibiotics to discharge home either Zyvox 600 mg twice a day for a week or doxycycline 100 mg twice a day for a week.
[2018-04-30] MEDS: HumaLOG 300 UNITS/3 ML VIAL SC PRN (11:01)
[2018-04-30 11:38] LABS: ANA Symphony (Qualitative) Negative (Negative); dsDNA IgG Antibody 1.7 IU/mL (<10 Negative)
[2018-04-30 12:06] LABS: DRVVT Confirm 30.8; DRVVT Ratio 0.8 Ratio (1.2 or Less); DRVVT Screen 23.7 SEC (20-50); HEX PHOS LA Tube 1 34.6 SEC; HEX PHOS LA Tube 2 37.6 SEC
[2018-04-30 12:17] LABS: Cardiolipin IgA Ab 4.6 APL-U/mL (<14 Negative); Cardiolipin IgG Ab 1.4 GPL-U/mL (<10 Negative); Cardiolipin IgM Ab 1.9 MPL-U/mL (<10 Negative); EliA APS New Method **** NEW METHOD ****; beta-2-Glycoprotein I IgA Ab 1.6 U/mL (<7 Negative); beta-2-Glycoprotein I IgG Ab 1.1 U/mL (<7 Negative); beta-2-Glycoprotein I IgM Abs Less than 2.9 U/mL (<7 Negative)
[2018-04-30 14:28] LABS: Cytoplasmic (C-ANCA) <1:20 titer (Neg:<1:20); Myeloperoxidase AutoAbs <9.0 U/mL (0.0-9.0); Perinuclear (P-ANCA) <1:20 titer (Neg:<1:20); Proteinase-3 AutoAbs Less than 3.5 U/mL (0.0-3.5)
[2018-04-30 17:30] VITALS: BP 168/78; TEMP 98
--- NOTE | 2018-05-01 05:26 | DIS ---
DATE OF DISCHARGE: 04/30/2018 DISCHARGE DIAGNOSES: 1. Hemoptysis. 2. Pneumonia. 3. Possible methicillin-resistant pneumonia. 4. History of sarcoidosis. HOSPITAL COURSE: The patient is a very pleasant 62-year-old female who initially presented to the [facility] with hemoptysis. The patient prior to presenting to the hospital, was treated with a course o f steroids, Medrol Dosepak, and Levaquin for possible pneumonia. However, patient continued to worse n and had hemoptysis which concerned her and brought her into the ER for further evaluation. Patient did undergo a CT abdomen and pelvis, which indicated no emboli; however, had a 5.5-cm mass-like cons olidation in the superior portion of the left lower lobe. The patient at this time was seen by Megan hankins. She underwent a bronchoscopy and no biopsies were done due to the very friable and some old bl ood was noted on the left bronchial. At this time, bronchial washing fluid was collected and sent fo r culture which indicated methicillin-resistant Staph aureus. The patient also had an autoimmune wor kup which was essentially negative. The patient was sent home with doxycycline 100 mg twice a day fo r a week and will follow up with a slug press operator as an outpatient. She was also put on Medrol Dosepa k since she states that she is very sensitive to high doses of prednisone and would prefer Medrol Dos epak. Patient given her history of TIAs x2 in the past, was asked to continue her aspirin; however, she was told that if her hemoptysis worsen or if she starts coughing up significant amount of blood, she needs to come right back into the ER. The patient will follow up with PCP and Pulmonology as an outpatient. PHYSICAL EXAMINATION: VITAL SIGNS: 98.0, 76, 16, 96% on room air, 125/76. GENERAL: She is awake, alert, oriented x3. She does not appear in distress. CARDIOVASCULAR: S1, S2 present. No murmurs, rubs, or gallops. LUNGS: Some crackles still heard in left lower lung; however, otherwise pretty normal. ABDOMEN: Soft, nontender. Bowel sounds present x2. EXTREMITIES: No edema. DISCHARGE INSTRUCTIONS: Again, the patient will be discharged home. She will follow up with PCP and Pulmonology. DISCHARGE MEDICATIONS: Her home medications are as follows: Lipitor 20 mg daily, Tessalon Perles 10 0 mg t.i.d. p.r.n., doxycycline 100 mg b.i.d., Pepcid 20 mg b.i.d., Medrol Dosepak. She is on Dulera 2 puffs b.i.d., gabapentin 300 mg b.i.d., sertraline 50 mg daily, metformin 1000 mg daily, aspirin 8 1 mg daily, oxybutynin 5 mg b.i.d., trazodone 50 mg p.r.n. and albuterol inhaler as needed, melatonin 10 mg at bedtime.
[2018-05-01 19:09] LABS: Fungus Stain Final report (.); Fungus Stain Result 1 Yeast observed (.)
== END 2018-04-30 18:54 | disposition home or self-care (01) | DRG 167 ==
LOC: ERS 01:49 → T4-A 03:30
PROVIDERS: ADMIT Internal Medicine; ATTEND Internal Medicine
PROC: 0B9L8ZX Drainage of Left Lung, Via Natural or Artificial Opening Endoscopic, Diagnostic (ICD-10-PCS; 2018-04-27)
PROC: 0BDB8ZX Extraction of Left Lower Lobe Bronchus, Via Natural or Artificial Opening Endoscopic, Diagnostic (ICD-10-PCS; principal; 2018-04-28)
PROC: 3E0F8GC Introduction of Other Therapeutic Substance into Respiratory Tract, Via Natural or Artificial Opening Endoscopic (ICD-10-PCS; 2018-04-28)
DX: J15.212 Pneumonia due to Methicillin resistant Staphylococcus aureus (principal); R04.2 Hemoptysis; D86.0 Sarcoidosis of lung; E11.42 Type 2 diabetes mellitus with diabetic polyneuropathy; D50.9 Iron deficiency anemia, unspecified; E78.5 Hyperlipidemia, unspecified; I10 Essential (primary) hypertension; F32.9 Major depressive disorder, single episode, unspecified; Z87.891 Personal history of nicotine dependence; Z86.73 Personal history of transient ischemic attack (TIA), and cerebral infarction without residual deficits; Z88.5 Allergy status to narcotic agent; Z88.8 Allergy status to other drugs, medicaments and biological substances; Z79.84 Long term (current) use of oral hypoglycemic drugs; Z79.82 Long term (current) use of aspirin; Z79.899 Other long term (current) drug therapy
CPT/HCPCS: 36415; 36416; 71046; 76000; 80048; 80053; 80061; 82728; 83036; 83520; 83540; 85014; 85018; 85025; 85046; 85240; 85250; 85598; 85610; 85613; 85652; 85730; 86038; 86140; 86146; 86147; 86225; 86256; 86480; 87070; 87077; 87102; 87116; 87186; 87205; 87206; 87633; 87899; 88104; 88112; 88305; 88312; 94640; 99152; 99153; 99285; A4216; J0456; J0692; J0696; J2001; J2250; J2920; J3010; J7050; J7506; J7620

== ENCOUNTER 2018-05-10 12:34 | Outpatient (CLI) | payer MEDICARE ==
--- NOTE | 2018-05-10 13:51 | RAD ---
TWO VIEWS CHEST: Date: 05-10-18 Comparison: 04-29-18 History: Shortness of breath. FINDINGS: There is a incompletely imaged lap band present. No pneumothorax is seen. There is no focal consolida tion or alveolar edema. There is a linear density noted on the lateral examination posteriorly/superiorly. There is also an a willa of linear density in the left lung base, less conspicuous than on the prior examination. No lobar consolidation or alveolar edema. 04-07-18 exam demonstrated a focal areas of parenchymal opacity within the left lung base. IMPRESSION: Mild linear density in the left base suggests scar or volume loss. Aeration within the left base has improved since 04-07-18. No acute findings. POS: H
== END 2018-05-10 12:35 | disposition home or self-care (01) ==
LOC: RAD 12:34
PROVIDERS: ATTEND Internal Medicine Pulmonary Disease
DX: R06.00 Dyspnea, unspecified (principal); R91.8 Other nonspecific abnormal finding of lung field
CPT/HCPCS: 71046

== ENCOUNTER 2018-08-11 10:57 | Outpatient (CLI) | payer MEDICARE ==
--- NOTE | 2018-08-11 11:20 | RAD ---
CHEST 1 VIEW: Date: 08/11/18 HISTORY: Dyspnea. COMPARISON: 05/10/18. FINDINGS: Heart size within normal limits. Parenchymal scarring in the left mid lung field is felt to be fairly stable as compared to the prior exam. IMPRESSION: Stable exam. POS: [facility]
== END 2018-08-11 10:58 | disposition home or self-care (01) ==
LOC: RAD 10:57
PROVIDERS: ATTEND Internal Medicine Pulmonary Disease
DX: R06.00 Dyspnea, unspecified (principal)
CPT/HCPCS: 71046

== ENCOUNTER 2019-03-15 13:31 | Outpatient (CLI) | payer MEDICARE ==
--- NOTE | 2019-03-15 14:30 | ULT ---
LIMITED SOFT TISSUE ULTRASOUND: DATE: 03/15/2019. PROVIDED CLINICAL HISTORY: Left 5th digit pain and swelling status post foreign body removal. FINDINGS: Limited sonographic interrogation of the 5th digit in the region of clinical concern demonstrates no evidence for a sonographically apparent foreign body or focal fluid collection. IMPRESSION: As above. POS: OFF
== END 2019-03-15 13:32 | disposition home or self-care (01) ==
LOC: BICULT 13:31
PROVIDERS: ATTEND Orthopaedic Surgery Hand Surgery
DX: M65.142 Other infective (teno)synovitis, left hand (principal)
CPT/HCPCS: 76999

== ENCOUNTER 2019-03-21 09:46 | Outpatient (CLI) | payer MEDICARE ==
[2019-03-21 11:39] LABS: #Basophils 0.1 thou/uL (0.0-0.2); #Eosinphils 0.7 thou/uL (0.0-0.7); #Lymphocytes 1.8 thou/uL (1.20-3.40); #Monocytes 0.4 thou/uL (0.11-0.59); #Neutrophils 4.8 thou/uL (1.40-6.50); %Basophils 0.7 % (0.0-1.0); %Lymphocytes 23.3 % (21.0-51.0); Hemoglobin 10.6 g/dL (12.0-16.0); Mean Corpuscular HGB CONC 32.3 g/dL (32.0-36.0); Mean Corpuscular Volume 80.6 fL (78.0-98.0); Mean Platelet Volume 7.6 fL (7.4-10.4); Platelet Count 239 thou/uL (130-400); RBC Distribution Width 16.5 % (11.5-14.5); Red Blood Cell (RBC) Count 4.09 mill/uL (4.20-5.40); White Blood Cell (WBC) Count 7.7 thou/uL (4.8-10.8)
== END 2019-03-21 09:47 | disposition home or self-care (01) ==
LOC: LABBT 09:46
PROVIDERS: ATTEND Orthopaedic Surgery Hand Surgery
DX: Z01.818 Encounter for other preprocedural examination (principal); S60.457A Superficial foreign body of left little finger, initial encounter
CPT/HCPCS: 85025; 93005; 93010

== ENCOUNTER 2019-03-22 07:59 | Day surgery (SDC) | payer MEDICARE ==
[2019-03-21 10:32] VITALS: BMI 37.0
[2019-03-22] MEDS ORDERED: Fentanyl 100 MCG/2 ML VIAL ONE (10:17)
[2019-03-22] MEDS ORDERED: Bupivacaine PF 0.5% 30 ML VIAL ONE (10:20)
[2019-03-22] MEDS ORDERED: Betamet Acet/Betamet Na Ph 30 MG/5 ML VIAL ONE (10:20)
[2019-03-22] MEDS ORDERED: Thrombin 5000 UNITS/5 ML VIAL ONE (10:21)
[2019-03-22] MEDS ORDERED: Bacitracin Zinc Ointment 30 gm TUBE ONE (10:21)
[2019-03-22] MEDS ORDERED: Sodium Chloride 0.9% 10 ML ONE (10:21)
[2019-03-22] MEDS ORDERED: Ketorolac Tromethamine 30 MG/ML VIAL ONE ×2 (12:20→14:19)
[2019-03-22] MEDS ORDERED: hydrALAZINE 20 MG/ML VIAL ONE (12:43)
[2019-03-22] MEDS ORDERED: Dexamethasone 20 MG/5 ML VIAL ONE (14:19)
[2019-03-22] MEDS ORDERED: PROPOFOL 200 MG/20 ML VIAL ONE (14:19)
[2019-03-22] MEDS ORDERED: Lidocaine 1% PF 5 ML VIAL ONE (14:19)
[2019-03-22] MEDS ORDERED: Ondansetron PF 4 MG/2 ML Vial ONE (14:19)
--- NOTE | 2019-03-22 18:08 | OP ---
DATE OF PROCEDURE: 03/22/2019 PREOPERATIVE DIAGNOSIS: Left small finger foreign body, probably secondary to catfish giorgio with previous negative ultrasound, but continued pain. POSTOPERATIVE DIAGNOSES AND FINDINGS: Flexor tenosynovitis tract leading to the base of the flexor digitorum profundus just as it entered the A3 leatha, but no actual catfish giorgio found anywhere either intraarticular, intratendinous, or under the pulleys. PROCEDURE PERFORMED: 1. Flexor tenosynovectomy. 2. Neuroplasty of digital nerve. 3. Flexor tenotomy for a small franck laceration underneath the flexor digitorum profundus tendon right before entering into the leatha. COMPLICATIONS: None. TOURNIQUET TIME: 28 minutes. ESTIMATED BLOOD LOSS: 5 mL. INJECTABLE: 3 mL of Celestone drip technique over the tenderness area. DESCRIPTION OF PROCEDURE: After successful general endotracheal, the limb was prepped and draped. The patient had timeout done appropriately, we injected the small finger with 10 mL 0.5% metacarpophalangeal joint level block without epinephrine. We waited 5 minutes and exsanguinated the limb and inflated the tourniquet to 250 mmHg pressure. A zigzag incision was made over point of maximal tenderness where there was a small skin dimple. We followed this dimple deep, first against the borders of the skin, no barbs. Next, I performed digital neuroplasty and manipulated the nerve and then looked all around nerve distal and proximal for 2 cm, no giorgio. Then, we saw a small amount of flexor tenosynovitis thickening just proximal to the A3 leatha, so we did a flexor tenosynovectomy here, opened the sheath, flexed and extended the finger and saw a small superficial, less than 2% flexor tendon laceration there was franck like something had stabbed it, but there was no visible giorgio. We looked on both sides of the A3 leatha, both sides of the A2 leatha, we lifted the flexor tendons up individually and en minnie. We performed flexion-extension maneuvers to include hyperextension we did not see a foreign body, only the small tract. A formal flexor tenosynovectomy was accomplished and we did a small tenotomy to make the tendon flexes . There was no snapping and so we irrigated after we deflated the tourniquet with 500 mL normal saline. Obtained hemostasis, placed the Celestone over the flexor tenosynovitis area, obtained hemostasis and closed the wound with interrupted 4-0 nylon. A bulky dressing was applied and the patient left the operating room with good circulation and no evidence of complication. Job ID: [id number]
== END 2019-03-22 13:40 | disposition home or self-care (01) ==
LOC: SDC 07:59
PROVIDERS: ATTEND Orthopaedic Surgery Hand Surgery
PROC: 0LB80ZZ Excision of Left Hand Tendon, Open Approach (ICD-10-PCS; principal; 2019-03-22)
PROC: 0L880ZZ Division of Left Hand Tendon, Open Approach (ICD-10-PCS; 2019-03-22)
PROC: 01N40ZZ Release Ulnar Nerve, Open Approach (ICD-10-PCS; 2019-03-22)
DX: M65.842 Other synovitis and tenosynovitis, left hand (principal); E11.42 Type 2 diabetes mellitus with diabetic polyneuropathy; Z87.891 Personal history of nicotine dependence; Z86.73 Personal history of transient ischemic attack (TIA), and cerebral infarction without residual deficits; Z79.82 Long term (current) use of aspirin; Z79.84 Long term (current) use of oral hypoglycemic drugs; Z79.899 Other long term (current) drug therapy; Z88.5 Allergy status to narcotic agent; Z88.8 Allergy status to other drugs, medicaments and biological substances; Z98.1 Arthrodesis status
CPT/HCPCS: 85025; 93005; 93010; J0360; J0690; J0702; J1100; J1885; J2001; J2405; J2704; J3010; J3490; S0020

== ENCOUNTER 2019-05-17 14:35 | Outpatient (CLI) | payer MEDICARE ==
--- NOTE | 2019-05-17 14:52 | RAD ---
Exam: Chest 2 views COMPARISON: 08/11/2018, 04/04/2019 Correlation: Chest CT 04/26/2018 FINDINGS: Normal cardiac silhouette. Pulmonary vessels and hilum are normal. Costophrenic angles are clear. Chronic changes. No consolidat ion or mass. No pneumothorax. No osseous abnormalities. IMPRESSION: Chronic changes. No acute cardiopulmonary process.
== END 2019-05-17 14:36 | disposition home or self-care (01) ==
LOC: RAD 14:35
PROVIDERS: ATTEND Internal Medicine Pulmonary Disease
DX: R06.00 Dyspnea, unspecified (principal)
CPT/HCPCS: 71046

== ENCOUNTER 2019-10-28 08:30 | Outpatient (CLI) | payer MEDICARE ==
--- NOTE | 2019-10-28 09:45 | BD ---
DEXA BONE DENSITY STUDY: Date: 10/28/19 HISTORY: Postmenopausal. FINDINGS: BMD (g/cm2) Left Femoral Neck: 0.777 T-Score: -0.6 Total Femur: 0.888 T-Score: -0.4 Right Femoral Neck: 0.8071 T-Score: -0.4 Total Femur: 0.955 T-Score: +0.1 IMPRESSION: Normal bone mineral density of both hips. POS: [facility]
== END 2019-10-28 08:31 | disposition home or self-care (01) ==
LOC: BICMAMMO 08:30
PROVIDERS: ATTEND Nurse Practitioner
DX: Z13.820 Encounter for screening for osteoporosis (principal); Z78.0 Asymptomatic menopausal state
CPT/HCPCS: 77080

== ENCOUNTER 2020-12-13 17:49 | Observation (INO) | payer MEDICARE ==
[~2020-12-13 17:49] MED LIST: Iopamidol-370 76% 500 ML 1 ML ONE
[2020-12-13 18:37] LABS: #Basophils 0.1 thou/uL (0.0-0.2); #Eosinphils 0.5 thou/uL (0.0-0.7); #Lymphocytes 2.2 thou/uL (1.20-3.40); #Monocytes 0.4 thou/uL (0.11-0.59); %Basophils 0.9 % (0.0-1.0); %Eosinophils 5.6 % (0.0-10.0); %Lymphocytes 26.8 % (21.0-51.0); %Monocytes 4.9 % (0.0-10.0); %Neutrophils 61.8 % (42.0-75.0); Hemoglobin 12.3 g/dL (12.0-16.0); Mean Corpuscular HGB CONC 32.1 g/dL (32.0-36.0); Mean Corpuscular Volume 84.2 fL (78.0-98.0); Mean Platelet Volume 7.4 fL (7.4-10.4); Platelet Count 215 thou/uL (130-400); RBC Distribution Width 13.3 % (11.5-14.5); Red Blood Cell (RBC) Count 4.56 mill/uL (4.20-5.40); White Blood Cell (WBC) Count 8.1 thou/uL (4.8-10.8)
[2020-12-13 18:44] LABS: PTT 28.3 sec (22.9-36.1)
[2020-12-13 18:51] LABS: ALT (SGPT) 7 U/L (8-55); AST (SGOT) 9 U/L (5-34); Albumin 3.1 g/dL (3.4-4.8); Alkaline Phosphatase 114 U/L (40-110); Anion Gap 11 mmol/L (10-20); BUN (Urea Nitrogen) 4 mg/dL (9.8-20.1); Bilirubin, Total 0.2 mg/dL (0.2-1.2); CK (CPK) 40 U/L (29-168); Calc. Creatinine Clearance 0 mL/min (70-130); Calcium 8.4 mg/dL (7.8-10.44); Carbon Dioxide 22 mmol/L (23-31); Chloride 107 mmol/L (98-107); Globulin 3.1 g/dL (2.4-3.5); Glucose 91 mg/dL (80-115); Potassium 3.8 mmol/L (3.5-5.1); Protein, Total 6.2 g/dL (5.8-8.1); Sodium 136 mmol/L (136-145)
[2020-12-13] MEDS ORDERED: Aspirin Chewable 81 MG TAB ONE (18:58)
[2020-12-13] MEDS ORDERED: Acetaminophen 500 MG TAB ONE (19:33)
[2020-12-13 23:42] VITALS: BMI 35.2
[2020-12-14] MEDS ORDERED: Dextrose 50% Abboject 50 ML SYRINGE SLOW IVP PRN (00:32)
[2020-12-14] MEDS ORDERED: HumaLOG 300 UNITS/3 ML VIAL SC PRN ×2 (00:32)
[2020-12-14] MEDS ORDERED: Dextrose 5% in Water 1,000 ML IV PRN (00:32)
[2020-12-14] MEDS ORDERED: traZODone HCl 50 MG TAB PO PRN (00:32)
[2020-12-14 05:55] LABS: Cardiac Risk 3.8 (Less than 4.5)
[2020-12-14] MEDS ORDERED: Aspirin 81 mg Enteric Coated Tablet PO SCH (09:00)
[2020-12-14] MEDS ORDERED: Carvedilol 6.25 MG TAB PO SCH (09:00)
[2020-12-14] MEDS ORDERED: Citalopram 10 MG TAB PO SCH (09:00)
[2020-12-14] MEDS ORDERED: Losartan 25 MG TAB PO SCH (09:00)
[2020-12-14] MEDS: Gabapentin 300 MG CAP PO SCH ×2 (09:04→16:18)
[2020-12-14 09:31] LABS: SARS-CoV-2 PCR by NAA DETECTED (NotDetected)
[2020-12-14 13:26] VITALS: TEMP 98
[2020-12-14 16:21] VITALS: BP 164/84
[2020-12-14] MEDS ORDERED: Atorvastatin Calcium 20 MG TAB PO SCH (21:00)
== END 2020-12-14 18:30 | disposition home or self-care (01) ==
LOC: ERS 17:49 → 2SE 19:38
PROVIDERS: ADMIT Internal Medicine; ATTEND Internal Medicine
DX: U07.1 COVID-19 (principal); M54.2 Cervicalgia; M24.541 Contracture, right hand; E11.40 Type 2 diabetes mellitus with diabetic neuropathy, unspecified; I65.23 Occlusion and stenosis of bilateral carotid arteries; I16.1 Hypertensive emergency; I10 Essential (primary) hypertension; D86.9 Sarcoidosis, unspecified; K21.9 Gastro-esophageal reflux disease without esophagitis; Z86.73 Personal history of transient ischemic attack (TIA), and cerebral infarction without residual deficits; Z87.891 Personal history of nicotine dependence; Z79.84 Long term (current) use of oral hypoglycemic drugs; Z79.899 Other long term (current) drug therapy; Z88.5 Allergy status to narcotic agent; Z88.8 Allergy status to other drugs, medicaments and biological substances; Z98.1 Arthrodesis status
CPT/HCPCS: 70450; 70496; 70498; 70551; 71045; 80053; 80061; 82550; 82962 ×2; 83605; 83735; 84484; 85025; 85610; 85652; 85730; 93005; 93306; 99285; U0003; U0005; 36415; 36416; 87635; G0378; Q9967